=== PATIENT | male | born 1970 | race Caucasian/White ===

== ENCOUNTER → 2020-10-24 11:14 | Outpatient (BNVA) | payer MEDICARE, MEDICAID, SELFPAY | PROVIDERS: Family Provider Nurse Practitioner; PCP Nurse Practitioner; Visit Provider Family Medicine | DX: M17.11 Unilateral primary osteoarthritis, right knee (principal); E11.9 Type 2 diabetes mellitus without complications; R03.0 Elevated blood-pressure reading, without diagnosis of hypertension; Z87.898 Personal history of other specified conditions; Z13.220 Encounter for screening for lipoid disorders; Z13.6 Encounter for screening for cardiovascular disorders; M19.011 Primary osteoarthritis, right shoulder; M19.012 Primary osteoarthritis, left shoulder; Z86.2 Personal history of diseases of the blood and blood-forming organs and certain disorders involving the immune mechanism | CPT/HCPCS: 73030; 73562; 80053; 80061; 83036; 85025 ==

== ENCOUNTER 2021-02-05 12:31 | Emergency (ER) | payer MEDICARE, MEDICAID, SELFPAY ==
[2021-02-05 13:19] VITALS: BP 136/83; PULSE 69; RESP 18; TEMP 37.2; O2SAT 99; BMI 42.3
--- NOTE | 2021-02-05 13:26 | XRR_ITS ---
PROCEDURE INFORMATION: Exam: XR Right Ankle Exam date and time: 02/05/2021 1:26 PM Age: 50 years old Clinical indication: Trauma with pain. Dropped heavy toolbox on ankle/foot with blunt trauma. TECHNIQUE: Imaging protocol: XR Right ankle. Views: 3 or more views. COMPARISON: CR XR knee RT 3V* [id number] 10/24/2020 12:11 PM FINDINGS: There is soft tissue swelling about the ankle and along the dorsum of the foot. Plantar and posterior calcaneal spurs. The distal Achilles tendon is thickened; query tendinosis. The ankle mortise is symmetric. No osteochondral lesion is seen. No fracture, dislocation or subluxation. No periosteal reaction or supsicious bone lesion. Mild scattered degenerative changes. XR/XR ankle RT min 3V* [id number] IMPRESSION: 1. No acute fracture is seen. 2. Soft tissue swelling about the ankle and along the dorsum of the foot. 3. Plantar and posterior calcaneal spurs. 4. The distal Achilles tendon is thickened; query tendinosis.
--- NOTE | 2021-02-05 13:26 | XRR_ITS ---
PROCEDURE INFORMATION: Exam: XR Right Foot Exam date and time: 02/05/2021 1:26 PM Age: 50 years old Clinical indication: Trauma. Dropped heavy toolbox on foot with blunt trauma. TECHNIQUE: Imaging protocol: XR Right foot. Views: 3 or more views. COMPARISON: CR XR knee RT 3V* [id number] 10/24/2020 12:11 PM FINDINGS: Moderate hallux valgus deformity with small bunion. Bipartite lateral hallux sesamoid. 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 Deformity of the proximal phalanx of the 5th toe likely reflects remote trauma. Plantar and posterior calcaneal spurs. Mild Achilles tendinosis. Dorsal soft tissue swelling. No acute fracture, dislocation or subluxation is seen. XR/XR foot RT min 3V* [id number] IMPRESSION: 1. Soft tissue swelling. No acute fracture is seen. 2. Moderate hallux valgus deformity with small bunion. 3. 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 Plantar and posterior calcaneal spurs. 5. Mild Achilles tendinosis.
--- NOTE | 2021-02-05 13:30 | ED_ITS ---
HPI - Extremity Problem General: Chief complaint: Extremity Injury, Lower Stated complaint: RLE INJURY Time Seen by Provider: 02/05/21 13:26 History of Present Illness: HPI Narrative: Patient had 3 injuries to his right foot ankle in the last couple weeks. Which includes drop in couple different things on the and twisting yesterday. He says his foot hurts down by his toe and his ankle also hurts and has swelling. MD Complaint: joint swelling and joint pain Onset (ago): week(s) Pain Consistency: constant Location: right and lower extremity Severity scale (1-10): 3 Quality: aching Radiation: none Relieving factors: immobilization Exacerbating factors: weight bearing Associated symptoms: Reports no associated symptoms; Deny chest pain, fever(s) or rash Review of Systems Const: Denies: fever(s), chills or body aches Eyes: Denies: change in vision or blurry vision ENMT: Denies: throat pain or nasal congestion Card: Denies: chest pain or dyspnea on exertion Resp: Denies: dyspnea, productive cough or non-productive cough GI: Denies: abdominal pain, nausea or vomiting : Denies: difficulty urinating Musc: Reports: joint pain; Denies: extremity pain Skin/Breast: Denies: rash Neuro: Denies: headache(s) Psych: Denies: anxiety or depression Surendra/Lymph: Denies: easy bruising PFSH ED PFSH: Medical History Diabetes mellitus Surgical History History of left knee replacement S/P hernia surgery Family History Grandmother Cancer Father CAD (coronary artery disease) Diabetes Hypertension Denies family history of Stroke Social History Smoking and tobacco status: never smoked Alcohol intake: current Alcohol intake frequency: holidays/special occasions only Physical Exam Const: COMMON NORMALS: no acute distress, average body habitus and patient oriented x3 HENMT: COMMON NORMALS: normocephalic HEAD & SCALP: normal to inspection and normocephalic FACE & SINUS: normal facial exam Eye: COMMON NORMALS: conjunctivae normal GENERAL EYE: appearance normal, both eyes and all related structures CONJUNCTIVA: Yes conjunctivae normal Neck/C-Spine: COMMON NORMALS: no JVD Chest: COMMONS NORMALS: normal inspection of the chest Resp: COMMON NORMALS: normal respiratory effort Cardio: COMMON NORMALS: no JVD GI: COMMON NORMALS: Normal to inspection, nondistended, normoactive bowel sounds present Extremity: COMMON NORMALS: normal to inspection and full ROM RIGHT LOWER EXTREMITY: Yes foot & digits (Swelling tenderness) and Yes foot & digits (Tenderness along #1 metatarsal.) Neuro: COMMON NORMALS: patient oriented x3 Course Vital Signs: Vital signs: Vital Signs Temperature 99.0 F 02/05/21 13:19 Pulse Rate 69 02/05/21 13:19 Respiratory Rate 18 02/05/21 13:19 Blood Pressure 136/83 02/05/21 13:19 Pulse Oximetry 99 02/05/21 13:19 Discharge Plan Discharge Prescriptions: No Action No Known Home Medications RF: 0 Coding Level of Care Code ED [employer] for [address]
== END 2021-02-05 14:29 | disposition home or self-care (01) ==
PROVIDERS: Emergency Provider Nurse Practitioner Family; PCP Family Medicine
DX: M79.671 Pain in right foot (principal); E11.9 Type 2 diabetes mellitus without complications
CPT/HCPCS: 73610; 73630; 99282

== ENCOUNTER → 2021-11-27 09:08 | Outpatient (BNVA) | payer MEDICARE, MEDICAID, SELFPAY | PROVIDERS: PCP Family Medicine; Visit Provider Family Medicine | DX: M25.562 Pain in left knee (principal); M25.561 Pain in right knee; E11.9 Type 2 diabetes mellitus without complications; I10 Essential (primary) hypertension | CPT/HCPCS: 73562; 80053; 80061; 83036 ==

== ENCOUNTER → 2023-07-14 10:12 | Outpatient (BNVA) | payer MEDICARE, MEDICAID, SELFPAY | PROVIDERS: PCP Family Medicine; Visit Provider Family Medicine | DX: M51.36 Other intervertebral disc degeneration, lumbar region (principal); M19.011 Primary osteoarthritis, right shoulder; M19.012 Primary osteoarthritis, left shoulder; I10 Essential (primary) hypertension; E11.9 Type 2 diabetes mellitus without complications; M25.50 Pain in unspecified joint; Z13.220 Encounter for screening for lipoid disorders; Z13.6 Encounter for screening for cardiovascular disorders | CPT/HCPCS: 80053; 80061; 83036; 85651; 86038; 86140 ==

== ENCOUNTER → 2023-08-26 09:51 | Outpatient (BNVA) | payer MEDICARE, MEDICAID, SELFPAY | PROVIDERS: PCP Family Medicine; Referring Provider Family Medicine; Visit Provider Anesthesiology Pain Medicine | DX: F32.A Depression, unspecified (principal); M51.36 Other intervertebral disc degeneration, lumbar region; M51.16 Intervertebral disc disorders with radiculopathy, lumbar region; M47.816 Spondylosis without myelopathy or radiculopathy, lumbar region | CPT/HCPCS: 99204 ==

== ENCOUNTER 2023-09-18 09:13 | Outpatient (CLI) | payer MEDICARE, MEDICAID, SELFPAY ==
--- NOTE | 2023-09-18 09:30 | MR_ITS ---
WS: [id number] MRI LUMBAR SPINE NONCONTRAST TECHNIQUE: Sagittal T1, T2 and STIR imaging. Axial T1 and T2 imaging. CLINICAL INFORMATION: M54.16 - Radiculopathy, lumbar region COMPARISON: None. FINDINGS: Mild lumbar curve. No acute compression. Slight anterolisthesis L3 on L4. Disc bulging worse at L3-L4 L4-L5 and L5-S1. Incidental hemangioma L4 vertebral body. Prominent disc protrusion in the cervical spine at C5-6 with slight indentation of the cervical cord and mild to moderate central canal stenosi s. This could be further evaluated with cervical spine MRI. L1-L2: Mild facet arthropathy. Spinal canal and foramen are patent. L2-L3: Mild annular bulging. Mild facet arthropathy. Spinal canal and foramen are patent. L3-L4: Slight anterolisthesis. Mild annular bulging with a tiny annular fissure. Slight impingement t raversing L4 nerve root in the subarticular recess. Moderate facet arthropathy. Mild RIGHT and no sig nificant LEFT foraminal narrowing. Moderate central canal stenosis. L4-L5: Mild annular bulging with a tiny annular fissure. Mild central canal stenosis. Slight impingem ent of the traversing L5 nerve roots bilaterally. Moderate facet arthropathy. Foramen are patent. L5-S1: LEFT paracentral disc protrusion impinges the traversing LEFT S1 nerve root in the subarticula r recess. Moderate facet arthropathy. Mild bilateral foraminal narrowing. Visualized pelvic bony structures: Normal. Paravertebral soft tissues: Normal. IMPRESSION: 1. Mild lumbar curve. No acute compression. 2. Moderate central canal stenosis L3-4 due to disc bulging in combination with facet arthropathy an d ligamentum flavum hypertrophy. Prominent epidural fat contributes to stenosis. Impingement on the t raversing RIGHT L4 nerve root in the subarticular recess. 3. Mild central canal stenosis L4-5 with a shallow central protrusion. Impingement traversing RIGHT greater than LEFT L5 nerve roots. 4. LEFT paracentral protrusion L5-S1 impinges the traversing LEFT S1 nerve root in the subarticular recess. Recommend correlation LEFT S1 nerve root symptoms. 5. Mild RIGHT L3-4 and bilateral L5-S1 foraminal narrowing. 6. Moderate facet arthropathy L3-L5. 7. Prominent central disc protrusion C5-C6 with indentation on the cervical cord. Recommend cervical spine MRI.
== END 2023-09-18 09:14 | disposition home or self-care (01) ==
LOC: RAD 09:14
PROVIDERS: PCP Family Medicine; Visit Provider Anesthesiology Pain Medicine
DX: M51.16 Intervertebral disc disorders with radiculopathy, lumbar region (principal); M48.07 Spinal stenosis, lumbosacral region; M47.26 Other spondylosis with radiculopathy, lumbar region; M51.27 Other intervertebral disc displacement, lumbosacral region; M50.222 Other cervical disc displacement at C5-C6 level
CPT/HCPCS: 72148

== ENCOUNTER → 2023-09-29 09:33 | Outpatient (BNVA) | payer MEDICARE, MEDICAID, SELFPAY | PROVIDERS: PCP Family Medicine; Visit Provider Anesthesiology Pain Medicine | DX: M51.36 Other intervertebral disc degeneration, lumbar region; M51.16 Intervertebral disc disorders with radiculopathy, lumbar region; M50.90 Cervical disc disorder, unspecified, unspecified cervical region; M47.816 Spondylosis without myelopathy or radiculopathy, lumbar region; M50.222 Other cervical disc displacement at C5-C6 level | CPT/HCPCS: 99215 ==

== ENCOUNTER 2023-10-13 07:35 | Outpatient (CLI) | payer MEDICARE, MEDICAID, SELFPAY ==
--- NOTE | 2023-10-13 08:00 | MR_ITS ---
WS: [id number] MRI CERVICAL SPINE NONCONTRAST TECHNIQUE: Sagittal T1, T2 and STIR imaging. Axial T2, gradient, and fiesta imaging. CLINICAL INFORMATION: M54.12 - Radiculopathy, cervical region COMPARISON: None. FINDINGS: Straightening of the normal cervical lordosis. Central disc protrusion C5-C6 with indentation of the cervical cord with moderate central canal stenosis. Cord signal appears normal. C2-C3: Normal. C3-C4: Mild osteophytic ridging. Mild LEFT and no significant RIGHT foraminal narrowing. Mild facet a rthropathy. C4-C5: RIGHT paracentral disc osteophyte protrusion. Slight indentation on the RIGHT ventral cervical cord. Mild facet arthropathy. Mild central canal stenosis. Mild RIGHT foraminal narrowing. C5-C6: Bilobed disc osteophyte protrusion with indentation on the cervical cord. Moderate central can al stenosis. Moderate LEFT greater than RIGHT bony foraminal narrowing. Moderate facet arthropathy. C6-C7: Mild disc bulging. Spinal canal is patent. Mild bilateral foraminal narrowing. Mild facet arth ropathy. C7-T1: Slight anterolisthesis C7 on T1. Mild LEFT and no significant RIGHT foraminal narrowing. Mild facet arthropathy. Spinal canal is patent. Visualized brain stem structures: Normal. Prevertebral soft tissues: Normal. IMPRESSION: 1. Straightening of the normal cervical lordosis. 2. Bilobed disc osteophyte protrusion C5-C6 with indentation cervical cord and moderate central diane l stenosis. Moderate LEFT greater than RIGHT bony foraminal narrowing at this level. 3. Tiny RIGHT paracentral protrusion C4-5 with slight indentation cervical cord. Mild central canal stenosis. 4. Mild LEFT C3-C4, LEFT C6-7, and LEFT C7-T1 bony foraminal narrowing.
== END 2023-10-13 07:36 | disposition home or self-care (01) ==
LOC: RAD 07:36
PROVIDERS: PCP Family Medicine; Visit Provider Anesthesiology Pain Medicine
DX: M50.121 Cervical disc disorder at C4-C5 level with radiculopathy (principal); M25.78 Osteophyte, vertebrae; M48.02 Spinal stenosis, cervical region
CPT/HCPCS: 72141

== ENCOUNTER → 2023-10-16 15:44 | Outpatient (BNVA) | payer MEDICARE, MEDICAID, SELFPAY | PROVIDERS: PCP Family Medicine; Visit Provider Orthopaedic Surgery | DX: M54.16 Radiculopathy, lumbar region; M54.2 Cervicalgia | CPT/HCPCS: 36415; 72050; 72110; 80053; 81001; 85025; 99204 ==

== ENCOUNTER 2023-11-03 05:33 | Day surgery (SDC) | payer MEDICARE, MEDICAID, SELFPAY ==
[2023-11-03] VITALS (14 sets, daily range): BP systolic 101–156; BP diastolic 63–96; PULSE 44–86; RESP 8–20; TEMP 36.1–36.8; O2SAT 90–98; BMI 39.0
[2023-11-03 06:27] LABS: Glucose Point of Care 192 mg/dL (70-110)
[2023-11-03] MEDS: sodium chloride 0.9% 1,000 ML 30 ML IV (06:27)
--- NOTE | 2023-11-03 06:35 | W.PM.OPSUD ---
Surgery/Procedure H&P Update DATE OF PROCEDURE: November 03, 2023 DATE H&P PERFORMED: 10/23/23 H&P UPDATE INFORMATION: I have reviewed H&P completed within last 30 days, I have examined patient prior to procedure and No changes to prior documentation PREOP DIAGNOSIS: Cervical spondylosis with radiculopathy PLANNED PROCEDURE: Operation Date: 11/03/23 07:00 Proposed Procedures p C5-C6 Anterior Cervical Discectomy & Fusion ACDF w/ Anterior Interbody Fusion w/ Cage w/ Instrumentation w/ Allograft w/ Navigation(Not Applicable) - Ray Zabala DO
--- NOTE | 2023-11-03 06:58 | ANES.PREANE2 ---
Pre-Anesthetic Assessment Height/Weight: Height 1.88 m Weight 137.892 kg Temp Pulse Resp BP Pulse Ox O2 Del Method 97.2 F L 86 18 156/96 98 Room Air 11/03/23 05:51 11/03/23 05:51 11/03/23 05:51 11/03/23 05:51 11/03/23 05:51 11/03/23 06:07 Preop Diagnosis: Cervical spondylosis with radiculopathy Operation Date: 11/03/23 07:00 Proposed Procedures p C5-C6 Anterior Cervical Discectomy & Fusion ACDF w/ Anterior Interbody Fusion w/ Cage w/ Instrumentation w/ Allograft w/ Navigation(Not Applicable) - Ray Zabala, Familial anesthetic complications: None Was Beta Magdaleno taken within 24 hours: N/A Was Clonidine taken within 24 hours: N/A Last intake: Intake Last Liquid Date 11/02/23 Last Liquid Time 22:00 Last Solid Date 11/02/23 Last Solid Time 19:00 Social No alcohol and No tobacco Exam alert, oriented x 3, clear to auscultation bilaterally and regular rate & rhythm Airway Mallampati: Class II Dentition: chipped (many chipped- poor dentition) CV/HEM Hypertension Anesthetic Plan ASA status: 2 Anesthesia: General Risk of > 500 ml blood loss (7ml/kg in children): No Medications/Allergies Home Medications Medication Instructions Recorded Confirmed Last Taken Type No Known Home Medications 10/31/23 11/03/23 Unknown History Allergies Allergy/AdvReac Type Severity Reaction Status Date / Time Opioids - Morphine Analogues Allergy Mild itching Verified 11/03/23 06:02 [facility] Anesthesia Medical History Diabetes mellitus Surgical History Hx of left knee surgery S/P hernia surgery Family History Grandmother Cancer Father CAD (coronary artery disease) Diabetes Hypertension Denies family history of Stroke Social History Smoking and tobacco/nicotine status: never used tobacco/nicotine Alcohol intake: current Alcohol intake frequency: holidays/special occasions only Substance/Drug Use: never Data Anesthesia Cardiac Studies: No Data to Display
[2023-11-03] MEDS: ceFAZolin 2,000 MG in sodium chloride 0.9% (plus) 50 ML 100 MG IV (07:00)
[2023-11-03] MEDS: lidocaine-epi 1% PF 1:200,000 30 mL SDV INJECTION (07:31)
[2023-11-03] MEDS: thrombin 5,000 unit SDV 5000 UNIT XX (07:31)
--- NOTE | 2023-11-03 08:40 | P.OP_ITS ---
Operative Report Date of procedure: November 03, 2023 Pre-op diagnosis: Cervical spondylosis with radiculopathy Post-op diagnosis: same Procedure done: 1. Anterior diskectomy C5/6 2. Insertion of cage C5/6 3. Instrumentation with anterior plate from C5-C6 4. Use of allograft Surgeon: Ray Zabala DO Estimated blood loss (mL): 5 Procedure: 1. Anterior diskectomy C5/6 2. Insertion of cage C5/6 3. Instrumentation with anterior plate from C5-C6 4. Use of allograft The patient was taken to the operating room, where he underwent general endotracheal anesthesia without complications. He was then positioned supine on the operating table, and all areas of impingement were well padded. The arms were carefully padded and tucked at his sides. A roll was placed between the shoulder blades.. An x-ray was done to determine the appropriate level for the skin incision. The entire neck was then sterilely prepped and draped in the usual fashion. Neuromonitoring was attached prior to prepping. A transverse skin incision was made and carried down to the platysma muscle. This was then split in line with its fibers. Blunt dissection was carried down medial to the carotid sheath and lateral to the trachea and esophagus until the anterior cervical spine was visualized. A needle was placed into a disc and an x-ray was done to determine its location. The longus colli muscles were then elevated bilaterally with the electrocautery unit. Self-retaining retractors were placed deep to the longus colli muscle. Attention was brought to the C5-6 level that was confirmed on x-ray. A caspar pin was placed into the C5 vertebrae and the C6 vertebrae. The disk space was then distracted. The microscope was then brought in. A radical anterior discectomies were performed at C5/6. This included complete removal of the anterior annulus, nucleus, and posterior annulus. The posterior longitudinal ligament was removed as were the posterior osteophytes. Foraminotomies were then accomplished bilaterally. This was done using a high speed emerita, kerrison rongeurs and curretes Once all of this was accomplished, the curved currette was used to check for any residual compression. The central canal was wide open as were the foramen. A high-speed bur was used to remove the cartilaginous endplates above and below the interspace. Bleeding cancellous bone was exposed. The disc space were measured and appropriate size cage were placed sterilely onto the field. Allograft graft was packed into the cages. The cage was then placed and there was good juxtaposition against the bleeding decorticated surfaces and good distraction of each interspace. The [place] pins were removed. Bone wax was used to prevent any bleeding from occurring at the pin sites. The appropriate size anterior cervical locking plate was chosen and bent into gentle lordosis. Two screws were then placed into each of the vertebral bodies at C5 and C6. There was excellent purchase. A final x-ray was done confirming good position of the hardware and Cages. The locking screws were then applied, also with excellent purchase. Following a final copious irrigation, there was good hemostasis and no dural leaks. The carotid pulse was strong. The wounds were then closed in layers using 2-0 Vicryl suture for the platysma muscle, 2-0 Vicryl suture for the subcutaneous tissue, and 4-0 monocryl suture in a subcuticular skin closure. Glue was placed followed by application of a sterile dressing. The drain was hooked to bulb suction. A soft collar was applied. The patient was then carefully returned to the supine position on his hospital bed where he was reversed and extubated and taken to the recovery room having tolerated the procedure well.
[2023-11-03] MEDS: fentaNYL 50 mcg/mL INJ 2mL IVP (08:58)
[2023-11-03] MEDS: HYDROcodone-acetaminophen 5-325 mg Tablet 1 TAB PO (09:42)
--- NOTE | 2023-11-03 11:05 | ANE.PACU2 ---
Inpatient post-anesthesia follow up: Airway intact: Yes Vital signs: Temperature 98.3 F Pulse Rate 67 Respiratory Rate 18 Blood Pressure 131/77 Pulse Oximetry 95 Oxygen Delivery Me thod Room Air Oxygen Flow Rate 5 Fraction of Inspir ed Oxygen Hydration adequate: Yes Nausea and vomiting: No Pain level: 1 Mental status: Baseline
--- NOTE | 2023-11-03 14:16 | XR_ITS ---
WS: [id number] Examination: XR cervical spine 3V* [id number] Reason for Exam: acdf, OR pic Date: November 03, 2023 Comparison: None. Findings: 2 intraoperative images were obtained with 10.8 seconds of fluoroscopy. Impression: Image demonstrates anterior plate and screw fixation at C5 and 6. Alignment is anatomic. Please see intraoperative note for full explanation of the findings and the procedure.
== END 2023-11-03 11:04 | disposition home or self-care (01) ==
PROVIDERS: PCP Family Medicine; Visit Provider Orthopaedic Surgery
PROC: 0RB30ZZ Excision of Cervical Vertebral Disc, Open Approach (ICD-10-PCS; CPT 22551; principal; 2023-11-03 07:00)
DX: M47.22 Other spondylosis with radiculopathy, cervical region (principal); E11.9 Type 2 diabetes mellitus without complications
CPT/HCPCS: 20930; 22551; 22853; 36416; 72040; 76000; 82962; C1713; C1763; C9359; J0131; J0330; J0690; J1100; J1200; J1885; J2371; J2405; J2704; J2710; J3010; J3490; J7030

== ENCOUNTER → 2023-11-18 08:18 | Outpatient (BNVA) | payer MEDICARE, MEDICAID, SELFPAY | PROVIDERS: PCP Family Medicine; Visit Provider Orthopaedic Surgery | DX: Z98.1 Arthrodesis status (principal) | CPT/HCPCS: 99024 ==

== ENCOUNTER → 2023-12-11 08:24 | Outpatient (BNVA) | payer MEDICARE, MEDICAID, SELFPAY | PROVIDERS: PCP Family Medicine; Visit Provider Orthopaedic Surgery | DX: Z98.1 Arthrodesis status (principal) | CPT/HCPCS: 72040; 99024 ==

== ENCOUNTER → 2024-01-22 10:29 | Outpatient (BNVA) | payer MEDICARE, MEDICAID, SELFPAY | PROVIDERS: PCP Family Medicine; Visit Provider Orthopaedic Surgery | DX: Z98.1 Arthrodesis status (principal); M54.2 Cervicalgia | CPT/HCPCS: 72040; 99024 ==

== ENCOUNTER → 2024-05-13 10:08 | Outpatient (BNVA) | payer MEDICARE, MEDICAID, SELFPAY | PROVIDERS: PCP Family Medicine; Visit Provider Orthopaedic Surgery | DX: Z98.1 Arthrodesis status (principal) | CPT/HCPCS: 72040; 99214 ==

== ENCOUNTER → 2024-05-18 09:08 | Outpatient (BNVA) | payer MEDICARE, MEDICAID, SELFPAY | PROVIDERS: PCP Family Medicine; Visit Provider Family Medicine | DX: I10 Essential (primary) hypertension (principal); E11.9 Type 2 diabetes mellitus without complications | CPT/HCPCS: 80053; 80061; 83036 ==

== ENCOUNTER 2024-06-07 07:57 | Outpatient (CLI) | payer MEDICARE, MEDICAID, SELFPAY ==
--- NOTE | 2024-06-07 08:00 | MR_ITS ---
WS: [id number] MRI CERVICAL SPINE NONCONTRAST HISTORY: neck pain COMPARISON: 10/13/2023 Technique: Multiplanar, multisequence noncontrast imaging of the cervical spine. Straightening of the normal cervical lordosis. Cervical fusion at C5-6 is new since 10/13/2023. Alignm ent is slightly improved. Interbody disc spacer at C5-6 with improvement of the disc space. Signal within the cervical cord is normal. Visualized posterior fossa is unremarkable. Craniocervical junction, C1 and C2 relationship, odontoid process and soft tissues are normal. C2-C3: Normal. C3-C4: Mild osteophytic ridging with mild LEFT foraminal stenosis. No interval change. C4-C5: Small RIGHT paracentral disc osteophyte causing encroachment upon the RIGHT ventral cervical c ord. Mild bilateral facet arthritis and foraminal narrowing. C5-C6: Bilobed disc protrusion is decreased in size. There is mild osteophytic ridging and annular di sc bulging. Moderate central with moderate bilateral foraminal stenosis. There is less disc encroachm ent upon the nerve roots. C6-C7: Mild annular disc bulging with osteophytic ridging. No significant stenosis. C7-T1: Normal. Paraspinal soft tissue are normal. MR/MR cervical spin wo con* [id number] IMPRESSION: 1. Status post anterior cervical fusion with interbody spacer at C5-6 since 06/2024. 2. Jainism of the C5-6 disc space. Bilobed, paracentral disc protrusions a t C5-6 are decreased in size with less encroachment upon the nerve roots. 3. C5-6: Moderate central with bilateral foraminal stenosis. Improved encroach ment upon the nerve roots. 4. C3-4: Mild LEFT foraminal stenosis due to osteophytes. 5. C4-5: Small RIGHT paracentral disc osteophyte encroaching and slightly cont acting the cervical cord. Similar to the prior study. 6. No myelomalacia.
== END 2024-06-07 07:58 | disposition home or self-care (01) ==
LOC: RAD 07:58
PROVIDERS: PCP Family Medicine; Visit Provider Orthopaedic Surgery
DX: M99.61 Osseous and subluxation stenosis of intervertebral foramina of cervical region (principal); M25.78 Osteophyte, vertebrae; M50.222 Other cervical disc displacement at C5-C6 level; Z98.1 Arthrodesis status
CPT/HCPCS: 72141

== ENCOUNTER → 2024-06-22 13:22 | Outpatient (BNVA) | payer MEDICARE, MEDICAID, SELFPAY | PROVIDERS: PCP Family Medicine; Visit Provider Orthopaedic Surgery | DX: Z09 Encounter for follow-up examination after completed treatment for conditions other than malignant neoplasm (principal) | CPT/HCPCS: 99214 ==

== ENCOUNTER → 2024-08-26 09:28 | Outpatient (BNVA) | payer MEDICARE, MEDICAID, SELFPAY | PROVIDERS: PCP Family Medicine; Referring Provider Orthopaedic Surgery; Visit Provider Specialist | DX: R29.898 Other symptoms and signs involving the musculoskeletal system (principal); M79.632 Pain in left forearm; M79.631 Pain in right forearm; R20.0 Anesthesia of skin; R20.2 Paresthesia of skin; M79.643 Pain in unspecified hand | CPT/HCPCS: 95911 ==

== ENCOUNTER → 2024-09-02 13:55 | Outpatient (BNVA) | payer MEDICARE, MEDICAID, SELFPAY | PROVIDERS: PCP Family Medicine; Visit Provider Orthopaedic Surgery | DX: G56.03 Carpal tunnel syndrome, bilateral upper limbs (principal) | CPT/HCPCS: 99214 ==

== ENCOUNTER → 2024-11-02 08:06 | Outpatient (BNVA) | payer MEDICARE, MEDICAID, SELFPAY | PROVIDERS: PCP Family Medicine; Visit Provider Orthopaedic Surgery | DX: G56.03 Carpal tunnel syndrome, bilateral upper limbs (principal); M79.642 Pain in left hand; M79.641 Pain in right hand; M25.531 Pain in right wrist; M25.532 Pain in left wrist | CPT/HCPCS: 73110; 99214 ==

== ENCOUNTER → 2024-11-04 09:38 | Outpatient (BNVA) | payer MEDICARE, MEDICAID, SELFPAY | PROVIDERS: PCP Family Medicine; Visit Provider Family Medicine | DX: E11.9 Type 2 diabetes mellitus without complications (principal); I10 Essential (primary) hypertension | CPT/HCPCS: 80053; 83036 ==

== ENCOUNTER → 2024-11-16 05:37 | Day surgery (SDC) | payer MEDICARE, MEDICAID, SELFPAY ==
[2024-11-16] VITALS (7 sets, daily range): BP systolic 95–141; BP diastolic 60–95; PULSE 58–75; RESP 17–18; TEMP 36.1–36.6; O2SAT 94–98; BMI 37.7
[2024-11-16 06:20] LABS: Glucose Point of Care 182 mg/dL (70-110)
[2024-11-16] MEDS: sodium chloride 0.9% 1,000 ML 30 ML IV (06:39)
--- NOTE | 2024-11-16 07:00 | W.PM.OPSUD ---
Surgery/Procedure H&P Update DATE OF PROCEDURE: November 16, 2024 DATE H&P PERFORMED: 11/02/24 H&P UPDATE INFORMATION: I have reviewed H&P completed within last 30 days, I have examined patient prior to procedure, No changes to prior documentation, H&P is in [facility] EMR on date indicated and Risks and benefits of the procedure reviewed PREOP DIAGNOSIS: right carpal tunnel syndrome PLANNED PROCEDURE: Operation Date: 11/16/24 07:00 Proposed Procedures p RIGHT Carpal Tunnel Release(Right) - Miah Lentz MD Related Problem List Diagnoses (1) Carpal tunnel syndrome: Qualifiers: Laterality: bilateral Qualified Code(s): G56.03 - Carpal tunnel syndrome, bilateral upper limbs
[2024-11-16] MEDS: ceFAZolin 3,000 MG in sodium chloride 0.9% (plus) 100 ML 200 MG IV (07:03)
--- NOTE | 2024-11-16 07:13 | ANES.PREANE2 ---
Pre-Anesthetic Assessment Height/Weight: Height 1.88 m Weight 133.356 kg Temp Pulse Resp BP Pulse Ox O2 Del Method 97.9 F 75 18 141/95 98 Room Air 11/16/24 06:03 11/16/24 06:03 11/16/24 06:03 11/16/24 06:03 11/16/24 06:03 11/16/24 06:12 Preop Diagnosis: right carpal tunnel syndrome Operation Date: 11/16/24 07:00 Proposed Procedures p RIGHT Carpal Tunnel Release(Right) - Miah Lentz MD Last intake: Intake Last Liquid Date 11/15/24 Last Liquid Time 22:30 Last Solid Date 11/15/24 Last Solid Time 19:00 Social No alcohol and No tobacco Exam alert, oriented x 3, clear to auscultation bilaterally and regular rate & rhythm Airway Submandibular: within normal limits Cervical ROM: within normal limits Mallampati: Class II History/ROS No significant history except as noted CV/HEM Hypertension Metabolic Diabetes Mellitus Anesthetic Plan ASA status: 2 Anesthesia: MAC Medications/Allergies Home Medications ?Medication ?Instructions ?Recorded ?Confirmed ?Last Taken ?Type alcohol swabs 1 pad topical TID PRN as needed to 11/09/24 11/15/24 Unknown Rx check blood sugar 30 days #100 ea blood sugar diagnostic (Blood #50 ea 11/09/24 11/09/24 Unknown Rx Glucose Test strips) blood-glucose meter (Blood Glucose #1 ea 11/09/24 11/09/24 Unknown Rx Monitoring kit) lancets #100 ea 11/09/24 11/09/24 Unknown Rx glipizide 10 mg tablet, extended 10 mg PO BID 11/15/24 11/15/24 11/15/24 History release 24 hr Allergies Allergy/AdvReac Type Severity Reaction Status Date / Time Opioids - Morphine Analogues AdvReac Severe itching Verified 11/09/24 08:02 Current Medications Generic Name Dose Route Start Last Admin Trade Name Freq PRN Reason Stop Dose Admin Sodium Chloride 1,000 mls @ 30 mls/hr 11/16/24 06:00 11/16/24 06:39 Sodium Chloride 0.9% IV 11/17/24 05:59 30 mls/hr .Q24H MICHAEL Administration PFSH Anesthesia Medical History Diabetes mellitus Surgical History Hx of left knee surgery S/P hernia surgery Family History Grandmother Cancer Father CAD (coronary artery disease) Diabetes Hypertension Denies family history of Stroke Social History Smoking and tobacco/nicotine status: never used tobacco/nicotine Alcohol intake: current Alcohol intake frequency: holidays/special occasions only Substance/Drug Use: never Data Anesthesia Cardiac Studies: No Data to Display
[2024-11-16] MEDS: BUPivacaine 0.5% INJ 30 mL 5 ML INJECTION (07:22)
[2024-11-16] MEDS: lidocaine-epi 1% PF 1:200,000 30 mL SDV 5 ML INJECTION (07:22)
--- NOTE | 2024-11-16 07:39 | P.OP_ITS ---
Operative Report Date of procedure: November 16, 2024 Surgeon: Miah Lentz MD Procedure: Preop diagnosis: Right carpal tunnel syndrome Postop diagnosis: Same Procedure: Right carpal tunnel release Surgeon: Miah Lentz MD Anesthesia: IV sedation with local anesthetic Tourniquet time: 8 minutes at 250 mmHg EBL: None Indications: Kai is a 54-year-old white male who is referred in the orthopedic clinics for numbness and tingling in his right hand. He has had electrical studies demonstrating compression of the median nerve at the carpal tunnel. Clinical exam is also consistent with this. Therefore at this time having failed all conservative measures he was offered a right carpal tunnel release. He had a discussed with him that there may be permanent damage to the nerve and that release may not resolve all of his symptoms. He also does understand may take up to 17 weeks before we know the final result of the release. He does understand this has had all of his questions answered and wishes to proceed with surgical intervention. Procedure: After obtaining consent patient was taken to the operating room placed table supine position and IV sedation was administered. A pneumatic cast placed on the proximal right arm and the right arm was prepped and draped usual fashion. After surgical timeout right arm was wrapped with an Esmarch wrap for exsanguination and pneumatic cuff was inflated 250 mmHg. At this time the palmar region of the right hand was injected with a mixture of lidocaine and bupivacaine for local anesthetic. Once good anesthesia was achieved. Longitudinal incision made from the distal flexor crease on the volar surface of the wrist distally along the ulnar border of the mid palmar crease. This incision was approximately 1-1/2 cm long. Sharp dissection gone down to the s ubcutaneous tissue. Some fatty tissue was excised with tenotomy scissors to allow for better visualization. Transverse carpal ligament was identified and divided with #15 blade along the course of the skin incision. Once down into the carpal tunnel Metzenbaum scissors and a blunt and sharp manner were then used to split the transverse carpal ligament both proximally and distally releasing all structures from the compression. After evaluating adequate release skin was closed with 3-0 nylon running horizontal mattress suture. At this point pneumatic cuff is deflated after 8 minutes total trigger time. Wound was dressed with Xeroform gauze, sterile gauze dressing, Kerlix wrap, and an Manjit wrap for compression. Patient was awakened transferred recovery room stable condition
--- NOTE | 2024-11-16 12:24 | P.ANESPOST_ITS ---
Inpatient post-anesthesia follow up: Vital signs: Temperature 97 F Pulse Rate 72 Respiratory Rate 17 Blood Pressure 116/76 Pulse Oximetry 97 Oxygen Delivery Me thod Room Air Oxygen Flow Rate Fraction of Inspir ed Oxygen Hydration adequate: Yes Nausea and vomiting: No Pain level: Con trolled Mental status: Baseline
== END | disposition home or self-care (01) ==
PROVIDERS: PCP Family Medicine; Visit Provider Orthopaedic Surgery
PROC: (CPT 64721; principal; 2024-11-16 07:00)
DX: G56.03 Carpal tunnel syndrome, bilateral upper limbs (principal); I10 Essential (primary) hypertension; E11.9 Type 2 diabetes mellitus without complications; Z79.84 Long term (current) use of oral hypoglycemic drugs; Z88.5 Allergy status to narcotic agent
CPT/HCPCS: 64721; 36416; 82962; J0690; J2250; J2704; J3010; J3490; J7030; J9999

== ENCOUNTER → 2024-11-29 08:43 | Outpatient (BNVA) | payer MEDICARE, MEDICAID, SELFPAY | PROVIDERS: PCP Family Medicine; Visit Provider Orthopaedic Surgery | DX: Z98.890 Other specified postprocedural states (principal) | CPT/HCPCS: 99024 ==

== ENCOUNTER → 2025-02-17 09:59 | Outpatient (BNVA) | payer MEDICARE, MEDICAID, SELFPAY | PROVIDERS: PCP Family Medicine; Visit Provider Family Medicine | DX: I10 Essential (primary) hypertension (principal); E11.9 Type 2 diabetes mellitus without complications; K90.49 Malabsorption due to intolerance, not elsewhere classified | CPT/HCPCS: 80048; 83036; 86003; 86008 ==

== ENCOUNTER → 2025-06-20 10:15 | Outpatient (BNVA) | payer MEDICARE, MEDICAID, SELFPAY | PROVIDERS: PCP Family Medicine; Visit Provider Family Medicine | DX: E11.9 Type 2 diabetes mellitus without complications (principal); I10 Essential (primary) hypertension | CPT/HCPCS: 80053; 80061; 83036 ==